=== PATIENT | female | born 1960 | race Caucasian/White ===

== ENCOUNTER 2023-08-14 02:12 | Day surgery (SDC) | payer BC, SELFPAY ==
--- NOTE | 2023-08-10 07:25 | P.HP_ITS ---
H&P: HPI History of Present Illness Date/Time: 08/10/23 07:25 Chief Complaint: Postmenopausal bleeding Narrative: 63-year-old 2 para 2 admitted for hysteroscopy and dilatation curettage secondary to vaginal bleeding. She has a history of endometrial polyp and thickened endometrium. She will undergo hysteroscopy dilatation and curettage. Risks and benefits reviewed including not exclusive of , aspiration ligament bleeding, transfusion, perforation injury to bowel, bladder, ureters, or other internal organs with need for laparotomy. She received the ACOG handout entitled hysteroscopy and dilatation curettage respectively. She had all questions answered and asked to proceed [facility] Family History Family History Mother Depression Family history of thyroid disease Sibling Depression Family history of thyroid disease Social History Social History Social History: Caffeine- Coffee (2 cups daily) Years smoked: 40 Smoking status: Current every day smoker Tobacco type: cigarettes Alcohol intake: current Alcohol use details: Social Substance use: never Lack of Transportation: No Lack of Food: Never True Current Housing: I Have Housing Concerned About Future Housing: No Difficulty Paying Gas/Electric Bills: No Difficulty Paying for Meds: No Currently Unemployed: No Difficulty w/ Childcare or Family Care: No Meds Home Medications and Allergies Home Medications Medication Instructions Recorded Confirmed Type linaclotide 72 mcg capsule 72 mcg PO DAILY #90 caps 05/25/23 06/26/23 Rx (Linzess) ciprofloxacin HCl 500 mg tablet 500 mg PO Q12H #20 tabs 08/06/23 Rx metronidazole 500 mg tablet 500 mg PO Q12H #20 tabs 08/06/23 Rx Allergies Allergy/AdvReac Type Severity Reaction Status Date / Time No Known Allergies Allergy Verified 06/26/23 15:04 Exam Const: General: cooperative, healthy appearing and comfortable Orientation/consciousness: oriented to person, oriented to place and oriented to time HENMT: Head: normal to inspection Resp: Effort & Inspection: normal respiratory effort Cardio: Rate: regular rate Rhythm: regular rhythm Heart sounds: S1 no rmal heart sound present and S2 normal heart sound present GI: Inspection: normal to inspection : External Female Exam: normal external appearance Speculum Exam - Vagina: normal appearance of the vagina and vaginal bleeding Speculum Exam - Cervix: normal appearance of the cervix Bimanual exam- vagina & uterus: enlarged Bimanual Exam- Adnexa, other: normal adnexae Assessment and Plan Assessment and plan (1) Postmenopausal bleeding: Code(s): N95.0 - Postmenopausal bleeding Status: Acute Plan Hysteroscopy/dilatation and curettage
--- NOTE | 2023-08-12 08:55 | PC.NURSE ---
Report to the Outpatient Waiting Room, entrance under the green pavilion located off [facility], at time 1330 on date 08/14/23. Planned Procedure Time: 1530. Time changes happen often and if your time is changed the preop area will call you the afternoon before. - You and your visitor will be asked to self-screen and do not enter if you have any COVID symptoms. - A mask is optional within the hospital at this time. Patients may have clear liquids (water, carbonated beverages, clear teas, apple juice) until 3 hours prior to surgery with a maximum of 20 ounces. - No food from midnight until time of surgery Take the following medications with a SIP of water the morning of surgery: ANTIBIOTICS DO NOT STOP ANY OF YOUR OTHER PRESCRIPTION MEDICATIONS PRIOR TO SURGERY ?EXCEPT THE FOLLOWING Medications to discontinue per physician: N/A Date to take last dose: N/A Please no make-up, nail marshallese, hairspray, perfume, deodorant, or body powder the day of surgery. No jewelry (including any body piercings) or valuables the day of surgery, leave them at home. Please take a shower or bath the night before, or the morning of, surgery with an antibacterial soap. Wear comfortable, loose fitting clothing. - Jewelry must be removed prior to entering the operating room. Rings and piercings that are not removed may be cut off. - The hospital will not accept responsibility for valuables. - Please leave all valuables, including medications, at home the day of surgery. If you are going home after surgery, a licensed electric screw driver operator must drive you home. - NO public transportation without another adult if you receive anesthesia. - We recommend that an adult stay with you for 24 hours following discharge. - We also recommend that you do not drive, make important decision, drink alcoholic beverages, or take any drugs that were not prescribed by your health care provider for at least 24 hours after your discharge time. Follow any additional instructions given to you from your surgeon. If you or anyone in your household have experienced Covid symptoms in the past week, please notify your surgeon or the nurse liaison at the phone number below for possible testing. Telephone instructions given to PT Richard JOINER and asked if any additional questions and then verbalized understanding. Patient advised to call surgeon office or pre surgery nurse liaison [phone] if any additional questions.
--- NOTE | 2023-08-14 06:28 | WPDHPUPDATE1 ---
History and Physical Update Update Date/Time: 08/14/23 06:28 History and Physical has been reviewed, including an updated exam of the patient. There are NO changes in the patient's condition. Risks, benefits, and alternatives have been discussed and questions answered. Patient agrees to proceed with procedure.
[2023-08-14 11:13] VITALS: BP 131/75; PULSE 83; RESP 18; TEMP 36.6; O2SAT 98
--- NOTE | 2023-08-14 11:27 | P.PNAN_ITS ---
Anes - Initial Pre Proc Eval Procedure: Operation Date: 08/14/23 13:00 Proposed Procedures p Hysteroscopy, Dilation and Curettage - Tayo Moss MD Date/Time: 08/14/23 11:27 Surgeon: Tayo Moss MD Pre Op Diagnosis: post menopausal bleeding Patient Data Age: 63 Gender: F Height: 1.68 m Weight: 84.4 kg Allergies Allergy/AdvReac Type Severity Reaction Status Date / Time No Known Allergies Allergy Verified 08/12/23 08:45 Home Medications Medication Instructions Recorded Confirmed Type linaclotide 72 mcg capsule 72 mcg PO DAILY #90 caps 05/25/23 08/12/23 Rx (Linzess) ciprofloxacin HCl 500 mg tablet 500 mg PO Q12H #20 tabs 08/06/23 08/12/23 Rx metronidazole 500 mg tablet 500 mg PO Q12H #20 tabs 08/06/23 08/12/23 Rx hydrocodone 5 mg-acetaminophen 325 1 tablet PO Q4H PRN pain #14 tabs 08/14/23 Rx mg tablet Patient hx anesthesia problems: none Family hx anesthesia problems: none Results Review: All pre-operative results and documents have been reviewed as part of the pre- operative evaluation. [facility] Family History Family History Mother Depression Family history of thyroid disease Sibling Depression Family history of thyroid disease Social History Social History Social History: Caffeine- Coffee (2 cups daily) Smoking packs per day: 1 Smoking cigarettes per day: 20.0 Years smoked: 15 Smoking pack-years: 15.00 Smoking status: Current every day smoker Tobacco type: cigarettes Additional smoking assessment comments: DOWN TO 4 CIGARETTES/DAY Alcohol intake: current Alcohol use details: 2/MONTH Substance use: never Substance use type: does not use Lack of Transportation: No Lack of Food: Never True Current Housing: I Have Housing Concerned About Future Housing: No Difficulty Paying Gas/Electric Bills: No Difficulty Paying for Meds: No Currently Unemployed: No Difficulty w/ Childcare or Family Care: No Living arrangements: with family Spiritual care concerns: No Anes - Eval Final PreProcedure Day of Procedure 08/14/23 11:27 Patient weight: overweight Heart: regular rate and rhythm Lungs: decreased breath sounds Airway: Mallampati scale class II Neurological: alert and oriented Last oral intake: >/= 8 hours ASA classification: II Emergent: no Anesthetic plan: proceed Anesthesia type and monitoring: general GIVS and standard monitoring Results Review: All pre-operative results and documents have been reviewed as part of the pre- operative evaluation. Informed Consent: The patient's anesthetic plan and its attendant risks and benefits were discussed with the patient/family/POA. Questions were solicited and answers provided to the satisfaction of the patient/family/POA.
[2023-08-14] MEDS: ACETAMINOPHEN 500 MG TABLET 1000 MG PO (11:28)
--- NOTE | 2023-08-14 12:09 | P.OP_ITS ---
Procedure Note - Detailed Date of Procedure 08/14/23 Pre-op Diagnosis post menopausal bleeding Post-op Diagnosis Same Procedure Performed Hysteroscopy dilatation curettage Surgeon Tayo Moss MD Anesthesia MAC and Local Indications 63-year-old female with postmenopausal bleeding Findings thick endometrium. 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 Under excellent IV sedation weighted speculum placed in posterior fornix of vagina. 2.5cc 1% xylocaine anesthesia placed at 2, 4, 8, 10:00 a.m. o f the cervix. Uterus sounded to 9cm. Serial dilatation with fragmented dilators performed followed by passage of the 5mm visualizing hysteroscope using normal saline as visualizing medium. Thick irregular endometrium was present. Did have a suspicious look for the thickness for a woman of this age uterus was then scraped over the entire 360? removing large amount of thick endometrial tissue. When the procedure was finished the patient was awakened and went to recovery in satisfactory condition. All sponge, needle, instrument counts were correct. There were no immediate complications Estimated Blood Loss 5 Drains No Packing No Pathology Yes Complications No immediate complications Condition Stable Disposition PACU
[2023-08-14 12:11] VITALS: BP 98/77; PULSE 76; RESP 14
[2023-08-14] MEDS: LIDOCAINE HCL 1% LOCAL INJ 20 ML VIAL 10 ML INFILTRATE (12:13)
[2023-08-14 12:40] VITALS: BP 107/65; PULSE 66; RESP 18
[2023-08-14 13:10] VITALS: BP 107/68; PULSE 63; RESP 18
== END 2023-08-14 13:18 | disposition home or self-care (01) ==
PROVIDERS: PCP Family Medicine; Visit Provider Obstetrics & Gynecology
PROC: 0U5B8ZZ Destruction of Endometrium, Via Natural or Artificial Opening Endoscopic (ICD-10-PCS; CPT 58563; principal; 2023-08-14 13:00)
DX: C54.1 Malignant neoplasm of endometrium (principal); N95.0 Postmenopausal bleeding; F17.210 Nicotine dependence, cigarettes, uncomplicated
CPT/HCPCS: 58558; 88305; 88342; 88360; A9270; J2250; J2405; J2704; J3010

== ENCOUNTER 2025-08-02 13:45 | Outpatient (CLI) | payer BC, SELFPAY ==
--- NOTE | ~2025-08-02 | CT_ITS ---
EXAM/PROCEDURE: CT abdomen pelvis wo con HISTORY: Colostomy status COMPARISON: None available. TECHNIQUE: Noncontrast CT of the abdomen and pelvis FINDINGS: Left lower quadrant colostomy present with moderate size 6.6 x 6.1 cm peritoneal defect as measured in the transverse by cephalocaudal dimension with several loops of herniated small bowel and a portion of the splenic flexure also herniated. The bowel gas pattern is nonobstructive. No free air or pneumatosis seen. Trace amount of free fluid is present. No hydroureteronephrosis or AAA. Gallbladder is contracted. No grossly inflamed appendix. Uterus appears removed. Adnexal regions unremarkable. Pancreas spleen adrenal glands stomach and liver grossly normal for technique. No bulky lymphadenopathy or masses seen. Bibasal fibrotic/atelectatic appearing changes in the lung bases. Heart size normal. Degenerative changes throughout the bones with severe degenerative changes at L2-3 and probably at least mild spinal canal stenosis at this level. Degenerative changes present throughout the remainder of the bones. IMPRESSION: Directed noncontrast exam demonstrating left lower quadrant colostomy with several loops of herniated small bowel and a portion of herniated large bowel; the bowel gas pattern is nonobstructive. There is a small amount of free fluid in the peritoneum of uncertain significance but no free air or pneumatosis seen. Reviewed, dictated and finalized at location A. [facility] IMPRESSION: Directed noncontrast exam demonstrating left lower quadrant colosto my with several loops of herniated small bowel and a portion of herniated large bowel; the bowel gas pattern is nonobstructive. There is a small amount of carol e fluid in the peritoneum of uncertain significance but no free air or pneumato sis seen.
== END 2025-08-02 13:46 | disposition home or self-care (01) ==
LOC: MICIMG 13:45
PROVIDERS: PCP Family Medicine; Visit Provider Surgery
DX: K45.8 Other specified abdominal hernia without obstruction or gangrene (principal); Z93.3 Colostomy status
CPT/HCPCS: 74176

== ENCOUNTER 2025-08-07 00:18 | Day surgery (SDC) | payer BC, SELFPAY ==
[2025-07-28 14:24] VITALS: BMI 25.0
--- OUTSIDE RECORDS SUMMARY | 2025-08-07 00:21 | XMS_ITS | Clinical Summary ---
Author Organization [facility] Address [address] [place] [address] Care Team Providers Care Automotive Sales Specialist Name Role Phone Clemente Kate MD Primary Care Provider [phone] Source Comments [facility],non-owned Affiliates and Associated Physician Practices is amultiple site organization consisting of ambulatory clinics and hospital sitesin [place], [place], [place] and [place]. This disclosure is being madepursuant to the Care Everywhere program and may not contain all information available regarding this patient. Last updated 18.[employer] Allergies No known active allergies Medications * Be aware that medications may not be up to date on this document. Alwaysverify current medications with the patient. linaCLOtide (Linzess) 72 MCG capsule Take 1 (one) capsule by mouth daily before breakfast 1 Active dicyclomine (Bentyl) 20 MG tablet 3 times daily as needed 4 Active polyethylene glycol 3350 (Miralax) 17 GM/SCOOP powder Take 17 (seventeen) g by mouth once daily As needed for constipation. 289 g 1 4 Active Active Problems Problem Noted Date Diagnosed Date Endometrial adenocarcinoma 10/28/2023 S/P total hysterectomy and B SO (bilateral salpingo-oophorectomy) 10/28/2023 Diverticulitis 05/03/2023 Immunizations Immunization Administration Dates Next Due INFLUENZA VACCINE, QUADR. (F LUZONE; FLULAVAL; FLUARIX; AFLURIA QUADRIVALENT; 6MO+), 0.5 ML (IIV4) 06/02/2022,07/13/2021 TDAP, HISTORIC VACCINE 06/18/2022 iNFLUENZA VACCINE, RECOM-BLACK, QUADR. (FLUBLOCK QUADRIVALENT; 18Y+) (RIV4) 06/01/2023,06/20/2020 Social History Tobacco Use Types Packs/Day Years Used Date Smoking Tobacco: Every Day Cigarettes Smokeless Tobacco: Never Tobacco Cessation:Ready to Q uit: Yes; Counseling Given: Yes Alcohol Use Standard Drinks/Week Comments Yes 0 (1 standard drink = 0.6 oz pur e alcohol) occasional PHQ-2 Answer Date Recorded Patient Health Questionnaire-2 Score 0 02/05/2024 Comments No Sex and Gender Information Value Date Recorded Sex Assigned at Female 08/31/2023 9:29 AM RN VASCULAR Legal Sex Female 1:42 PM RN VASCULAR Gender Identity Female 08/31/2023 9:29 AM RN VASCULAR Sexual Orientation Straight 08/31/2023 9: 29 AM RN VASCULAR Last Filed Vital Signs Vital Sign Reading Time Taken Comments Blood Pressure 105/70 02/17/2024 11:26 AM CDT Pulse 73 02/17/2024 11:26 AM CDT Temperature 36.5 C (97.7 F) 02/17/2024 11:26 AM CDT Respiratory Rate 18 11/19/2023 1:23 PM CDT Oxygen Saturation 95% 02/17/2024 11: 26 AM CDT Inhaled Oxygen Concentration - - Weight 84.7 kg (186 lb 12.8 oz) 024 11:26 AM CDT Height 167.6 cm (5' 6) 02/17/2024 11:2 6 AM CDT Body Mass Index 30.15 02/17/2024 11:26 AM CDT Plan of Treatment Health Maintenance Due Date Last Done Comments COLON MONITORING 1962 COLONOSCOPY - COLON CA SCREENING 1962 CT COLONOGRAPHY - COLON CA SCREENING 1962 FIT - COLON CA SCREENING 1962 FLEX SIG - COLON CA SCREENING 1962 LIPID TESTING 1962 HIV SCREENING 1977 HEPATITIS C SCREENING 04/26/1980 PNEUMOCOCCAL VACCINE 50+ (1 of 2 - PCV) 1981 ZOSTER VACCINE (1 of 2) 2012 DEPRESSION SCREENING 08/24/2024 08/31/2023 COVID-19 VACCINE ( season) 2025 06/01/2023, 06/02/2022, 02/01/2022, Additional history exists INFLUENZA VACCINE (#1) 2025 , 06/02/2022, 07/13/2021, Additional history exists COLOGUARD (AGES 45-75) - COLON CA SCREENING 07/14/2025 07/14/2022 Colorectal Cancer Screening 07/14/2025 MAMMOGRAM 07/21/2025 07/21/2023, 07/21/2023 SCREENING FOR DIABETES 10/05/2026 10/05/2023 DTAP/TDAP/TD VACCINES (2 - Td or Tdap) 06/18/2032 06/18/2022 Respiratory Syncytial Virus (RSV) Vaccine Pt: or over 60 yrs (1 - 1-dose 75+ series) 2037 HEPATITIS B VACCINE Aged Out No longe r eligible based on patient's age to complete this topic HIB VACCINE Aged Out No longer eligi ble based on patient's age to complete this topic HPV VACCINE Aged Out No longer eligi ble based on patient's age to complete this topic MENINGOCOCCAL (Group B) VACCINE SHARED DECISION-MAKING Aged Out No longer eligible based on patient's age to complete this topic MENINGOCOCCAL GROUPS A/C/Y/W VACCINE Aged Out No longer eligible based on patient's age to complete this topic Procedures Procedure Name Priority Date/Time Associated Diagnosis Comments BASIC METABOLIC PANEL (CALCIUM TOTAL) Pre-Op 10/05/2023 1:35 PM RN VASCULAR Preop testing from Last 3 Months or Most Recently Relevant to Health Maintenance Results * (ABNORMAL) BASIC METABOLIC PANEL (CALCIUM TOTAL) (10/05/2023 1:35 PM RN VASCULAR) Glucose 94 70 - 105 mg/dL 10/05/2023 2:37 PM RN VASCULAR [facility] Sodium 138 136 - 145 mmol/L 10/05/2023 2:37 PM RN VASCULAR [facility] Potassium 3.5 3.5 - 5.1 mmol/L 10/05/2023 2:37 PM RN VASCULAR [facility] Chloride 106 98 - 107 mmol/L 10/05/2023 2:37 PM RN VASCULAR [facility] CO2 21(L) 22 - 29 mmol/L 10/05/2023 2:37 PM RN VASCULAR [facility] Calcium 9.2 8.4 - 10.4 mg/dL 10/05/2023 2:37 PM RN VASCULAR [facility] Anion Gap 11 6 - 16 mmol/L 10/05/2023 2:37 PM RN VASCULAR [facility] BUN 10 7 - 26 mg/dL 10/05/2023 2:37 PM RN VASCULAR [facility] Creatinine 0.65 0.57 - 1.11 mg/dL 10/05/2023 2:37 PM RN VASCULAR [facility] eGFR by CKD-EPI >90 >=90 mL/min/1.7 3 m2 10/05/2023 2:37 PM RN VASCULAR [facility] Blood BLOOD SPECIMEN / Unknown Venipuncture / Unknown 10/05/2023 1:35 PM RN VASCULAR 10/05/2023 1:51 PM RN VASCULAR us Joshua Decker MD LAB - CHEMISTRY ORDERABLES Fin al Result Performing Organization Address [facility]/State/[facility] Co de Phone Number [facility] [address] [place] [address] from Last 3 Months or Most Recently Relevant to Health Maintenance Insurance ANTHEM ANTHEM SELF PAY NO INSURANCE Member Subscriber Plan / Payer (Ef fective for All Dates) Name:Amina Preston Member ID:Not on file Relation to Subscriber:Not on file Name:AMINA PRESTON Subscriber ID:Not on file Address: [address] [place] [address] Payer ID:Not on file Group ID:Not on file Type:Self Pay Address: [place], [place] Care Teams Automotive Sales Specialist Relationship Specialty Start Date End Date Clemente Kate MD [address] [place] [phone] PCP - General Family Medicine 08/19/23
--- OUTSIDE RECORDS SUMMARY | 2025-08-07 00:21 | XMS_ITS | Clinical Summary ---
Author Organization [facility] Address [address] [place], [place] [address] [address] Care Team Providers Care Asphalt Tile Floor Layer Name Role Phone Unavailable Primary Care Provider Unavailabl e Social History Tobacco Use Types Packs/Day Years Used Date Smoking Tobacco: Never Assessed Comments No Sex and Gender Information Value Date Recorded Sex Assigned at Not on file Legal Sex Female 11:54 AM TRAY CHECKER Gender Identity Not on file Sexual Orientation Not on file Plan of Treatment Health Maintenance Due Date Last Done Comments DTAP/TDAP/TD VACCINES (1 - Tdap) 1981 HPV/Cotest (21-29) 1983 CERVICAL CANCER SCREENING 1992 HPV/Cotest (30-65) 1992 PAP SMEAR 1992 COLORECTAL SCREENING 2007 Colorectal Cancer Screening 2007 FIT-DNA Q 3 years 2007 FIT/FOBT Q 1 year 2007 Flex Sig/CT Colonography Q 5 years 2007 ZOSTER VACCINE (1 of 2) 2012 BREAST CANCER SCREENING 07/21/2024 07/21/2023 INFLUENZA VACCINE (#1) 2025 RSV VACCINE (60+ or ) (1 - 1-dose 75+ series) 2037 Procedures Procedure Name Priority Date/Time Associated Diagnosis Comments MAMMO 3D ROSY SCREEN BILAT W OR WO CAD Routine 07/21/2023 2:07 PM TRAY CHECKER Breast cancer screening by mammogram from Last 3 Months or Most Recently Relevant to Health Maintenance Results * MAMMO SCRN BILAT 3D ROSY W OR WO CAD (07/21/2023 2:07 PM TRAY CHECKER) Anatomical Region Laterality Modality Breast Bilateral Mammography 07/21/2023 2:08 PM TRAY CHECKER Impressions 07/21/2023 3:39 PM TRAY CHECKER : No mammographic evidence for malignancy of the right breast. 2 adjacent small round focal asymmetry/masses are present in the retroareolar left breast. Targeted left breast ultrasound would be recommended. OVERALL FINAL ASSESSMENT: BI-RADS CATEGORY 0: Incomplete, needs additional imaging evaluation. Recommendation: Targeted left breast ultrasound. Narrative 07/21/2023 3:39 PM TRAY CHECKER BILATERAL SCREENING DIGITAL MAMMOGRAM WITH 3D TOMOSYNTHESIS AND CAD DATE: 07/21/2023 2:07 PM HISTORY: Annual screening study. COMPARISON: None. Baseline. TECHNIQUE: A bilateral screening mammogram was performed. Low-dose full-field digital breast tomosynthesis examination was performed with 2D and 3D acquisitions. Examination is read in conjunction with computer aided detection. BREAST COMPOSITION: Scattered fibroglandular densities FINDINGS: No masses, suspicious calcifications, or areas of asymmetry or distortion are identified of the right breast. In the slightly medial retroareolar left breast, there are 2 adjacent small round masses.q targeted left breast ultrasound would be recommended. us Clemente Kate MD MAMMO ORDERABLES Final Res ult from Last 3 Months or Most Recently Relevant to Health Maintenance Insurance [employer] BLUE ACCESS/TRUE BLUE PPO
--- OUTSIDE RECORDS SUMMARY | 2025-08-07 00:21 | XMS_ITS ---
Author Organization [facility] Address [address] [place] [address] Care Team Providers Care Consumer Banker Name Role Phone Clemente Kate MD Primary Care Provider [phone]- [phone] Active Problems Problem Noted Date Diagnosed Date Endometrial adenocarcinoma 10/28/2023 S/P total hysterectomy and B SO (bilateral salpingo-oophorectomy) 10/28/2023 Diverticulitis 05/03/2023 Current Treatment and Therapy Plans No current plan information found. Past Treatment and Therapy Plans No past plan information found. Lifetime Dose Tracking * Chemical Lifetime Dose Automatic Entry Manual Entr y Dose Length Product 1,111 mGy-cm 1,111 mGy-cm 0 mGy-cm
[2025-08-07 06:18] VITALS: BP 111/68; PULSE 85; RESP 16; TEMP 36.4; O2SAT 97
--- NOTE | 2025-08-07 06:55 | P.PNAN_ITS ---
Anes - Initial Pre Proc Eval Procedure: Operation Date: 08/07/25 07:30 Proposed Procedures p Diagnostic Colonoscopy - Nelson Braga DO Date/Time: 08/07/25 06:55 Surgeon: Nelson Braga DO Pre Op Diagnosis: Colostomy status Patient Data Age: 65 Gender: F Height: 1.68 m Weight: 69.2 kg Last Vital Signs Temp 97.5 F L 08/07/25 06:18 Pulse 85 08/07/25 06:18 Resp 16 08/07/25 06:18 BP 111/68 08/07/25 06:18 Pulse Ox 97 08/07/25 06:18 O2 Del Method Room Air 08/07/25 06:18 Allergies Allergy/AdvReac Type Severity Reaction Status Date / Time No Known Allergies Allergy Verified 08/07/25 06:16 Home Medications ?Medication ?Instructions ?Recorded ?Confirmed ?Type amoxicillin 500 mg capsule 500 mg PO Q8H #21 caps 07/2408/07/25 Rx Patient hx anesthesia problems: none Family hx anesthesia problems: none Results Review: All pre-operative results and documents have been reviewed as part of the pre-o perative evaluation. 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 coma Irritable bowel syndrome with both constipation and diarrhea Entrapment neuropathy of right sural nerve Depressive disorder, not elsewhere classified Benign paroxysmal positional vertigo Allergic rhinitis, cause unspecified Surgical History Surgical History History of hysterectomy H/O exploratory laparotomy Wide drainage of peritoneum, placement of abdominal drains 03/11/2025 re-ex lap with fascial closure 03/15/2025 H/O esophagogastroduodenoscopy 03/08/2025 Family History Family History Mother Depression Family history of thyroid disease Multiple sclerosis Sibling Depression Family history of thyroid disease Social History Social History Social History: Caffeine- Coffee (2 cups daily) Smoking packs per day: 0.25 Smoking cigarettes per day: 5.0 Years smoked: 15 Smoking pack-years: 3.75 Smoking status: Former smoker Tobacco type: cigarettes Additional smoking assessment comments: DOWN TO 4 CIGARETTES/DAY Alcohol intake: current Alcohol use details: occasionally Substance use: never Substance use type: does not use Lack of Transportation: No Lack of Food: Never True Current Housing: I Have Housing Concerned About Future Housing: No Difficulty Paying Gas/Electric Bills: No Difficulty Paying for Meds: No Currently Unemployed: No Difficulty w/ Childcare or Family Care: No Living arrangements: with family Spiritual care concerns: No Anes - Eval Final PreProcedure Day of Procedure 08/07/25 06:55 Patient weight: normal Lungs: normal air movement Airway: Mallampati scale class II Neurological: alert and oriented Last oral intake: >/= 8 hours ASA classification: II Emergent: no Anesthetic plan: proceed Anesthesia type and monitoring: general GIVS and standard monitoring Results Review: All pre-operative results and documents have been reviewed as part of the pre- operative evaluation. Ex smoker, 20 pack years, hx of colon obstruction/now w colostomy. Informed Consent: The patient's anesthetic plan and its attendant risks and benefits were discussed with the patient/family/POA. Questions were solicited and answers provided to the satisfaction of the patient/family/POA.
[2025-08-07] MEDS: LACTATED RINGERS 1,000 ML 150 ML IV CONT (06:56)
--- NOTE | 2025-08-07 07:35 | WPDHPUPDATE1 ---
History and Physical Update Update Date/Time: 08/07/25 07:35 History and Physical has been reviewed, including an updated exam of the patient. There are NO changes in the patient's condition. Risks, benefits, and alternatives have been discussed and questions answered. Patient agrees to proceed with procedure.
[2025-08-07 07:55] VITALS: BP 93/59; PULSE 78; RESP 26; O2SAT 96
[2025-08-07 08:05] VITALS: BP 96/62; PULSE 73; RESP 16; O2SAT 99
[2025-08-07 08:15] VITALS: BP 110/62; PULSE 75; RESP 17; O2SAT 97
== END 2025-08-07 08:24 | disposition home or self-care (01) ==
PROVIDERS: PCP Family Medicine; Visit Provider Surgery
PROC: 0DJD8ZZ Inspection of Lower Intestinal Tract, Via Natural or Artificial Opening Endoscopic (ICD-10-PCS; CPT 45378; principal; 2025-08-07 07:30)
DX: K57.30 Diverticulosis of large intestine without perforation or abscess without bleeding (principal); K58.2 Mixed irritable bowel syndrome; F32.A Depression, unspecified; F17.210 Nicotine dependence, cigarettes, uncomplicated; K43.5 Parastomal hernia without obstruction or gangrene; Z98.890 Other specified postprocedural states; Z93.3 Colostomy status
CPT/HCPCS: 44388; J2003; J2704; J7120